=== PATIENT | female | born 1975 | race Hispanic/Latino ===

== ENCOUNTER → 2018-01-27 16:05 | Outpatient (CLI) | payer OTHER, MEDICAID, SELFPAY ==
--- NOTE | 2018-01-27 | DI.MRI.S_ITS ---
PROCEDURE: MR CERVICAL SPINE WO/W CON INDICATIONS: LUMBAR SPINE TUMOR TECHNIQUE: Noncontrast sagittal T1 spin echo and T2 fast spin echo, sagittal STIR, foraminal oblique sagittal T2 fast spin echo, axial gradient echo or T2 fast spin echo through the cervical spine. After the administration of contrast, axial and sagittal T1 spin echo with fat saturation through the cervical spine. COMPARISON: None. FINDINGS: Image quality: Excellent. Alignment and curvature: There is normal bony alignment. Marrow: Marrow is normal in overall signal, without suspicious enhancement. Spinal cord: Visualized spinal cord has normal size and signal. No cerebellar tonsillar herniation. No intramedullary mass or abnormal intramedullary enhancement. Paraspinous soft tissues: No paravertebral masses or suspicious enhancement. Enlarged thyroid gland with heterogeneous signal and multiple nodules. Amorphous soft tissue may present in the upper mediastinum, which is partially visualized. C2-3: Normal appearance. C3-4: Preserved disc height and disc desiccation. There is broad posterior disc bulge. Left uncovertebral hypertrophy. Mild bilateral facet arthropathy. The central canal is mildly narrowed. Mild to moderate left foraminal stenosis. Patent right neural foramen. C4-5: Preserved disc height and disc desiccation. There is broad posterior disc bulge and uncovertebral hypertrophy. Moderate right and mild left facet arthropathy. The central canal is patent. Mild bilateral foraminal stenosis. C5-6: Preserved disc height and disc desiccation. There is broad posterior disc bulge and uncovertebral hypertrophy. Mild bilateral facet arthropathy. The central canal is mildly narrowed. Mild bilateral foraminal stenosis. C6-7: Normal appearance. C7-T1: Normal appearance. IMPRESSION: 1. No intramedullary lesion or abnormal enhancement involving the cervical cord or visualized upper thoracic cord. 2. Degenerative changes noted in cervical spine. 3. Mild central canal stenosis at C3-C4 and C5-C6. 4. Mild foramina stenosis at several levels as described. 5. Thyromegaly and thyroid nodules. Recommend thyroid ultrasound for followup. 6. Suggestion of amorphous soft tissue in the upper mediastinum which is partially visualized. Differential diagnoses include lymphadenopathy, substernal goiter versus artifact. If clinically indicated, CT with contrast may be obtained for followup evaluation. Dictated by: Cande Alexander M.D. on 01/28/2018 at 9:42 Approved by: Cande Alexander M.D. on 01/28/2018 at 9:53
== END ==
PROVIDERS: PCP Physician Assistant Medical; Visit Provider Neurological Surgery
DX: D49.2 Neoplasm of unspecified behavior of bone, soft tissue, and skin (principal); M50.21 Other cervical disc displacement, high cervical region; M47.812 Spondylosis without myelopathy or radiculopathy, cervical region; M48.02 Spinal stenosis, cervical region; E04.2 Nontoxic multinodular goiter
CPT/HCPCS: 72156; A9579

== ENCOUNTER 2020-01-25 18:36 | Emergency (ER) | payer MEDICARE, OTHER, MEDICAID, SELFPAY ==
[2020-01-25 19:11] VITALS: BP 153/74; PULSE 96; RESP 18; TEMP 36.8; O2SAT 98; BMI 51.5
--- NOTE | 2020-01-25 19:18 | DI.RAD.S_ITS ---
PROCEDURE: XR FOOT LT MIN 3V INDICATIONS: foot pain TECHNIQUE: 3 nonweightbearing views of the foot were acquired. COMPARISON: None. FINDINGS: Bones: No acute fractures or dislocations. No suspicious bony lesions. Mild degenerative changes are seen in the midfoot and at the navicular cuneiform articulations. A bipartite medial hallux sesamoid is noted. There is a small plantar calcaneal spur. A tiny os navicular is present. Soft tissues: No tibiotalar joint effusion. Achilles tendon appears normal. Mild soft tissue edema is seen at the dorsum of the foot. IMPRESSION: No acute osseous abnormality. Mild degenerative changes in the midfoot. Dictated by: Butch Kumari M.D. on 01/25/2020 at 19:32 Approved by: Butch Kumari M.D. on 01/25/2020 at 19:34
[2020-01-25] MEDS: IBUPROFEN 400 MG TABLET PO (20:26)
[2020-01-25 20:30] VITALS: BP 133/62; PULSE 93; RESP 16; O2SAT 99
--- NOTE | 2020-01-25 21:58 | ED.LOWEXIN ---
HPI - Extremity Injury (Lower) <CINDY Ohara - Last Filed: 01/25/20 22:33> General Chief Complaint: Extremity Injury, Lower Stated Complaint: LEFT FOOT HURTS TO PUT PRESSURE ON IT Time Seen by Provider: 01/25/20 19:42 Source: patient Mode of arrival: Ambulatory Limitations: no limitations History of Present Illness HPI Narrative: This is a 44 year female, nonsmoker, with past medical history significant for left knee meniscus injury, tumor removal from spine and uses special crutches for ambulation presents to ED with chief complain of left dorsal foot pain. Reports when she was in the shower and heard cracking noise and felt pain. Patient denies injuring affected foot by inverting or averting the foot or other mechanism. Patient reports pain increases with walking. Patient reports her legs swell is easily and had US test done for DVT in the past but it was negative. Patient reports slight numbness to toes but is able to move toes on affected foot. She had taken migraine Excedrin medications earlier for pain. Related Data Home Medications Medication Instructions Recorded Confirmed albuterol sulfate INHALATION 01/25/20 Allergies Allergy/AdvReac Type Severity Reaction Status Date / Time No Known Allergies Allergy Uncoded 07/10/17 12:47 Review of Systems <CINDY Ohara - Last Filed: 01/25/20 22:33> Review of Systems Narrative: General: Denies fever, chills, fatigue, malaise, sweats. Respiratory: Denies dyspnea, cough, wheezing, hemoptysis, sputum. Cardiovascular: Denies chest pain, palpitations, orthopnea, edema. Musculoskeletal: See HPI Skin: Denies rash, skin lesions, or other. Patient History <CINDY Ohara - Last Filed: 01/25/20 22:33> Surgical History History of spinal surgery (Acute) Social History Smoking Status: Never smoker Smoking Status: Never smoker alcohol intake frequency: 0-2 drinks per day Substance Use Type: marijuana Exam <CINDY Ohara - Last Filed: 01/25/20 22:33> Narrative Exam Narrative: General appearance: well developed, obese female, in no acute distress. Head: normocephalic, atraumatic, no scalp lesions, non-tender. ENT: Hearing grossly intact. Airway patent. Neck/Thyroid: neck supple, full range of motion, no visible masses or meningeal signs. No JVD, non-tender without lymphadenopathy. Skin: no suspicious rashes, lesions over visible areas. Warm and dry and appropriate color for ethnicity. Heart: no clubbing, no cyanosis, no edema. Lungs: Breathing even and unlabored. No stridor. No accessory muscles used. Able to speak in full sentences. Chest: normal shape and expansion. Abdomen: non-obese, non-distended. Neurologic: alert and oriented. Cognitive exam, AD COMPOSITOR and PNS grossly intact on informal exam. Psych: good eye contact, normal affect. Initial Vital Signs Initial Vital Signs: Vital Signs Temperature 98.2 F 01/25/20 19:11 Pulse Rate 96 H 01/25/20 19:11 Respiratory Rate 18 01/25/20 19:11 Blood Pressure 153/74 H 01/25/20 19:11 Pulse Oximetry 98 01/25/20 19:11 Extrem Right lower extremity: normal to inspection and edema Left lower extremity: normal to inspection, edema, ankle Details: normal to inspection; no tenderness and no swelling and foot Details: normal capillary refill, tenderness Location: of the dorsal foot, toes with normal ROM, vascular exam Details: dorsalis pedis pulse present and normal capillary refill, tendon exam Details: active flexion normal and active extension normal and motor-sensory exam Details: light-touch normal; no unusual warmth, no lacerations, no ecchymosis and no puncture wound <Lance Galdamez MD - Last Filed: 01/26/20 03:13> Initial Vital Signs Initial Vital Signs: Vital Signs Temperature 98.2 F 01/25/20 19:11 Pulse Rate 96 H 01/25/20 19:11 Respiratory Rate 18 01/25/20 19:11 Blood Pressure 153/74 H 01/25/20 19:11 Pulse Oximetry 98 01/25/20 19:11 Procedures <CINDY Ohara - Last Filed: 01/25/20 22:33> Orthopedic Splinting/Casting Injury #1: Side: left Lower Extremity Injury Location: foot Lower Extremity Immobilizer: Satish wrap Post splinting neuro exam: intact Post splinting vascular exam: intact Placed by: Nursing Scores <CINDY Ohara - Last Filed: 01/25/20 22:33> GCS [place] coma scale eye opening: Spontaneous Juan Carlos coma scale verbal response: Orientated [place] coma scale motor response: Obey commands B[place]ft coma scale total score: 15 Course <CINDY Ohara - Last Filed: 01/25/20 22:33> Orders Ordered: ED Orders 01/25/20 19:18 XR foot LT min 3V Stat Discontinued Medications Ibuprofen (Advil) 400 mg PO NOW ONE Stop: 01/25/20 20:20 Last Admin: 01/25/20 20:26 Dose: 400 mg Documented by: LARRY Vital Signs Vital signs: Vital Signs - 8 hr 01/25/20 20:30 Pulse Rate 93 H Respiratory Rate 16 Blood Pressure 133/62 Pulse Oximetry 99 <Lance Galdamez MD - Last Filed: 01/26/20 03:13> Orders Ordered: ED Orders 01/25/20 19:18 XR foot LT min 3V Stat Discontinued Medications Ibuprofen (Advil) 400 mg PO NOW ONE Stop: 01/25/20 20:20 Last Admin: 01/25/20 20:26 Dose: 400 mg Documented by: LARRY Vital Signs Vital signs: Vital Signs - 8 hr 01/25/20 20:30 Pulse Rate 93 H Respiratory Rate 16 Blood Pressure 133/62 Pulse Oximetry 99 MDM - Extremity Injury (Lower) <CINDY Ohara - Last Filed: 01/25/20 22:33> Differential Diagnosis Differential diagnosis: Likely other (Foot strain/sprain, foot fracture, arthritis) Medical Records Attestation: I reviewed the patient's medical records. Lab Data Attestation: I reviewed the patient's lab results. Imaging Data XR-Foot LT: Radiologist's Impression: [address] [address] XRay Report Signed Patient: Fransisca Whitaker R#: [id number] : 1975Acct:[id number] Age/Sex: 44 / FDate of Service: 01/25/20 Loc: ED Accession Number: [id number] Procedure: XR foot LT min 3V Ordering Provider: Lance Galdamez MD PROCEDURE: XR FOOT LT MIN 3V INDICATIONS: foot pain TECHNIQUE: 3 nonweightbearing views of the foot were acquired. COMPARISON: None. FINDINGS: Bones: No acute fractures or dislocations. No suspicious bony lesions. Mild degenerative changes are seen in the midfoot and at the navicular cuneiform articulations. A bipartite medial hallux sesamoid is noted. There is a small plantar calcaneal spur. A tiny os navicular is present. Soft tissues: No tibiotalar joint effusion. Achilles tendon appears normal. Mild soft tissue edema is seen at the dorsum of the foot. IMPRESSION: No acute osseous abnormality. Mild degenerative changes in the midfoot. Dictated by: Butch Kumari M.D. on 01/25/2020 at 19:32 Approved by: Butch Kumari M.D. on 01/25/2020 at 19:34 MDM Narrative Medical decision making narrative: This is a 44 year female presents to ED with nontraumatic left dorsal foot pain. Patient has intact sensation and distal pulses with brisk cap refill. Patient is able to move toes without difficulty. Patient has bilateral generalize leg swelling. X-ray test does not show acute fractures or dislocations. There is mild degenerative changes seen in the midfoot at the navicular cuneiform articulation. Applied Satish wrap on affected foot for support and advised to use her own special crutches. Patient was medicated with Motrin in ED. advised to follow-up primary care physician and [facility] phone number. Return precautions were discussed with patient and patient verbalized understanding in agreement with treatment plan. Discharge Plan Departure Patient Disposition: Home Clinical Impression: Foot sprain Qualifiers: Encounter type: initial encounter Laterality: left Qualified Code(s): S93.602A - Unspecified sprain of left foot, initial encounter Discharge Date/Time: 01/25/20 20:30 Instructions: DI for Knee Sprain Activity Restrictions/Additional Instructions: You have been diagnosed with [left foot pain likely from strain/sprain. X-ray test shows no acute findings such as fractures or dislocations. You can use Satish wrap to give support on affected foot. please elevate affected leg during rest. You can use cool pack on affected foot to help with pain and swelling. You can use your crutches for ambulation and weight-bearing.]. What to do: *Take your medications as directed. You can take [id number] Tylenol and or Motrin as needed for discomfort. You were provided with Motrin while in ED. *Follow up with your primary care provider in 2-3 days, call for an appointment. Let them know you were seen in the ED and that we asked you to be seen in follow up. *Return to ED if you have any new, worsening, or concerning symptoms, such as [worsening pain, weakness to affected foot, redness/warmth/swelling on affected foot or leg, chest pain, breathing difficulty, unable to tolerate fluids or any acute concerns]. Prescriptions: No Action albuterol sulfate 90 mcg/actuation HFA aerosol inhaler INHALATION RF: 0 Referrals: [facility] [Outside] Raymond Alvarez [Primary Care Provider] -
== END 2020-01-25 20:30 | disposition home or self-care (01) ==
PROVIDERS: Emergency Provider Nurse Practitioner Family; PCP Physician Assistant Medical
DX: S93.602A Unspecified sprain of left foot, initial encounter (principal)
CPT/HCPCS: 73630; 99283; 99284

== ENCOUNTER 2023-09-25 11:22 | Observation (INO) | payer OTHER, MEDICAID, SELFPAY ==
[2023-09-25] VITALS (13 sets, daily range): BP systolic 105–139; BP diastolic 49–91; PULSE 91–111; RESP 16–22; TEMP 36.2–36.6; O2SAT 92–100; BMI 51.5
[2023-09-25 11:48] LABS: Add Manual Diff / Slide Review NO; Basophils Absolute Auto 100 /uL (0-100); Basophils Percent Auto 0.5 % (0-2); Eosinophils Absolute Auto 100 /uL (0-450); Eosinophils Percent Auto 1.1 % (2-4); Hematocrit 40.2 % (36-46); Hemoglobin 13.3 g/dL (12.0-16.0); Lymphocytes Absolute Auto 2600 /uL (1100-4500); Lymphocytes Percent Auto 19.9 % (25-40); Mean Corpuscular HGB Conc 33.1 % (30-36); Mean Corpuscular Hemoglobin 28.4 PG (26-34); Mean Corpuscular Volume 85.8 fL (80-100); Monocytes Absolute Auto 600 /uL (0-900); Neutrophils Absolute Auto 9500 /uL (1500-7000); Neutrophils Percent Auto 73.5 % (50-75); Platelet Count 230 X10^3/uL (150-400); Red Blood Cell Count 4.68 X10^6/uL (4.0-5.2); Red Cell Distribution Width 13.8 % (11.6-14.8); White Blood Cell Count 12.9 X10^3/uL (4.5-11.0)
[2023-09-25 11:58] LABS: Alanine Aminotransferase 17 IU/L (<35); Albumin 3.8 g/dL (3.5-5.0); Alkaline Phosphatase 137 U/L (38-126); Aspartate Aminotransferase 24 IU/L (14-36); BUN Creatinine Ratio 17.9 (6-22); Bilirubin Total 0.5 mg/dL (0.2-1.3); Blood Urea Nitrogen 10 mg/dL (7-17); Calcium 8.8 mg/dL (8.4-10.2); Carbon Dioxide 28 mmol/L (22-32); Chloride 100 mmol/L (98-107); Estimated Glomerular Filt Rate > 60 mL/min (>60); Globulin 3.7 g/dL (1.7-4.1); Glucose 441 mg/dL (70-100); HEMOLYSIS < 15 (0-50); Lipase 96 U/L (23-300); Potassium 3.5 mmol/L (3.4-5.1); Sodium 135 mmol/L (137-145); Total Protein 7.5 g/dL (6.3-8.2)
[2023-09-25] MEDS: SODIUM CHLORIDE 0.9% 1,000 ML 1000 ML IV (12:01)
[2023-09-25 12:02] LABS: Bacteria Urine Moderate (10-30); Culture Indicated Urine Specimen Cultured; RBC Urine 5-10/HPF (0-5/HPF); Squamous Epithelial Cell Urine 5-10 /HPF (0-5/HPF); Urine Volume 10mL (spun); WBC Urine 10-30/HPF (0-5/HPF)
--- NOTE | 2023-09-25 12:05 | ED.GENADULT ---
HPI - General Adult General Chief complaint: Abdominal Pain Stated complaint: abd pain Time Seen by Provider: 09/25/23 11:48 Source: patient Mode of arrival: Ambulatory History of Present Illness HPI narrative: Patient is a 47-year-old female here for evaluation of right lower quadrant abdominal pain. Patient states her symptoms started yesterday. They are actually somewhat better today than what they were yesterday. She did have an episode of loose stool this morning. That did not change her belly pain. No vomiting. No fevers. No urinary symptoms. She states that the pain is present when you touch the area when she moves around. Has not tried anything for the symptoms prior to arrival. Related Data Home Medications Medication Instructions Recorded Confirmed albuterol sulfate 90 mcg/actuation inhalation 01/25/20 aerosol inhaler Allergies Allergy/AdvReac Type Severity Reaction Status Date / Time No Known Drug Allergies Allergy Verified 09/25/23 11:26 Review of Systems Review of Systems Narrative: See HPI Patient History Surgical History History of spinal surgery Social History Smoking Status: Current every day smoker Smoking Status: Current every day smoker alcohol intake frequency: holidays/special occasions only Substance Use Type: marijuana Exam Initial Vital Signs Initial Vital Signs: Vital Signs Temperature 97.9 F 09/25/23 11:26 Pulse Rate 106 H 09/25/23 11:26 Respiratory Rate 16 09/25/23 11:26 Blood Pressure 139/91 H 09/25/23 11:26 Pulse Oximetry 96 09/25/23 11:26 Oxygen Delivery Method Room Air 09/25/23 11:26 Const General: cooperative, comfortable and No ill appearing [facility] Head: normal to inspection and normocephalic Resp Effort & Inspection: normal respiratory effort Cardio Rate: regular rate GI Inspection: normal to inspection and non-distended Palpation: soft, No firm, No guarding and tender (Right lower quadrant) Back/Spine/Pelvis Back: No CVA tenderness Neuro General: patient alert and patient awake Course Orders Ordered: ED Orders 09/25/23 11:30 Urine Culture Stat Urine Microscopic Stat 09/25/23 11:35 Complete Blood Count AUTO DIFF Stat Comprehensive Metabolic Panel Stat Lipase Stat 09/25/23 12:05 CT abdomen pelvis w con Stat 09/25/23 13:40 Consult to General Surgery Stat Sodium Chloride (Normal Saline 0.9%) 1,000 mls @ 125 mls/hr IV CONT MATT Piperacillin Sod/Tazobactam (Sod 3.375 gm/ Sodium Chloride) 100 mls @ 25 mls/hr IV Q8H MATT Ondansetron HCl (Ondansetron 4 Mg/2 Ml Inj) 4 mg IV NOW PRN PRN Reason: Nausea And Vomiting Discontinued Medications Sodium Chloride (Normal Saline 0.9%) 1,000 mls @ 1,000 mls/hr IV BOLUS ONE Stop: 09/25/23 12:48 Last Infusion: 09/25/23 13:22 Dose: Infused Documented By: Admin: 09/25/23 12:01 Dose: 1,000 mls/hr Documented By: LAUREN Lorazepam (Lorazepam 2 Mg/Ml Inj) 1 mg IV NOW ONE Stop: 09/25/23 13:33 Morphine Sulfate (Morphine 4 Mg/Ml Inj) 4 mg IV NOW ONE Stop: 09/25/23 13:15 Last Admin: 09/25/23 13:22 Dose: 4 mg Documented By: GRACIELA Vital Signs Vital signs: Vital Signs - 8 hr 09/25/23 11:26 09/25/23 11:58 09/25/23 11:59 Temperature 97.9 F Pulse Rate 106 H Respiratory Rate 16 Blood Pressure 139/91 H 124/58 L Pulse Oximetry 96 96 Oxygen Delivery Method Room Air 09/25/23 11:59 09/25/23 12:00 09/25/23 12:00 Temperature Pulse Rate 103 H 107 H Respiratory Rate Blood Pressure 124/59 L Pulse Oximetry 97 97 Oxygen Delivery Method Medical Decision Making Lab Data Lab results reviewed: Yes I reviewed the patient's lab results. 09/25/23 11:35 09/25/23 11:35 Labs: Lab Results 09/25/23 09/25/23 Range/Units 11:30 11:35 WBC 12.9 H (4.5-11.0) X10^3/uL RBC 4.68 (4.0-5.2) X10^6/uL Hgb 13.3 (12.0-16.0) g/dL Hct 40.2 (36-46) % MCV 85.8 (80-100) fL MCH 28.4 (26-34) PG MCHC 33.1 (30-36) % RDW 13.8 (11.6-14.8) % Plt Count 230 (150-400) X10^3/uL Neut % (Auto) 73.5 (50-75) % Lymph % (Auto) 19.9 L (25-40) % [place] % (Auto) 5.0 (3-14) % Eos % (Auto) 1.1 L (2-4) % Baso % (Auto) 0.5 (0-2) % Neut # (Auto) 9500 H (1333-8605) /uL Lymph # (Auto) 2600 (6509-5461) /uL [place] # (Auto) 600 (0-900) /uL Eos # (Auto) 100 (0-450) /uL Baso # (Auto) 100 (0-100) /uL Sodium 135 L (137-145) mmol/L Potassium 3.5 (3.4-5.1) mmol/L Chloride 100 (98-107) mmol/L Carbon Dioxide 28 (22-32) mmol/L BUN 10 (7-17) mg/dL Creatinine 0.56 (0.52-1.04) mg/dL Estimated GFR > 60 (>60) mL/min BUN/Creatinine Ratio 17.9 (6-22) Glucose 441 H (70-100) mg/dL Calcium 8.8 (8.4-10.2) mg/dL Total Bilirubin 0.5 (0.2-1.3) mg/dL AST 24 (14-36) IU/L ALT 17 (<35) IU/L Alkaline Phosphatase 137 H (38-126) U/L Total Protein 7.5 (6.3-8.2) g/dL Albumin 3.8 (3.5-5.0) g/dL Globulin 3.7 (1.7-4.1) g/dL Albumin/Globulin Ratio 1.0 (1.0-2.8) Lipase 96 (23-300) U/L Urine RBC 5-10/hpf H (0-5/HPF) Urine WBC 10-30/hpf H (0-5/HPF) Ur Squamous Epith Cells 5-10 /hpf H (0-5/HPF) Urine Bacteria Moderate (10-30) H (None) Ur Culture Indicated? Specimen cultured Vol Urine Centrifuged 10ml (spun) Point of Care Testing Test Results Negative Urine Dip Bedside Urine Glucose 1000 mg/dl Bedside Urine Bilirubin - Negative Bedside Urine Ketone - Negative Urine Specific [place] 1.010 Bedside Urine Occult Blood ++ Bedside Urine pH 6.0 Bedside Urine Protein - Negative Bedside Urine Urobilinogen - Negative Bedside Urine Nitrite - Negative Bedside Urine Leukocytes - Negative Esterase Point of care testing: Point of Care Testing Test Results Negative Urine Dip Bedside Urine Glucose 1000 mg/dl Bedside Urine Bilirubin - Negative Bedside Urine Ketone - Negative Urine Specific [place] 1.010 Bedside Urine Occult Blood ++ Bedside Urine pH 6.0 Bedside Urine Protein - Negative Bedside Urine Urobilinogen - Negative Bedside Urine Nitrite - Negative Bedside Urine Leukocytes - Negative Esterase Imaging Data CT scan - abdomen/pelvis: Radiologist's Impression: PROCEDURE: CT ABDOMEN PELVIS W CON INDICATIONS: RLQ ABd pain TECHNIQUE: After the administration of intravenous contrast, axial sections acquired from the lung bases to the pubic symphysis. Coronal and sagittal reformats were performed. For radiation dose reduction, the following was used: automated exposure control, adjustment of mA and/or kV according to patient size. COMPARISON: None. FINDINGS: Image quality: Diagnostic. Lower Chest: No significant findings. ABDOMEN: Liver: No solid mass. Mild hepatomegaly. Mild diffuse hepatic steatosis. Gallbladder: No radiopaque gallstones or wall thickening. Biliary ducts: No biliary dilation. Pancreas: No ductal dilation. Spleen: Size is within normal limits. Adrenal Glands: No adrenal nodules. Kidneys and Ureters: No hydronephrosis. No solid mass. No complex renal cystic lesion which requires follow up. Stomach and Bowel: Normal colonic caliber, without significant wall thickening. Acute appendicitis with inflammatory change in the adjacent fat. Cannot exclude early rupture. This is not definite. There is an associated proximal appendiceal calcified fecalith. Peritoneum: No abnormal intraperitoneal fluid. No free air. Ventral Wall: No significant ventral hernia. Abdominal Nodes: No retroperitoneal or mesenteric adenopathy by size criteria. Vessels: Aorta and inferior vena cava are normal in size. PELVIS: Pelvic Organs: Unremarkable. Bladder: No bladder wall thickening, accounting for underdistention. Pelvic Nodes: No enlarged lymph nodes. Miscellaneous: No inguinal hernias are seen. Bones: No aggressive osseous abnormality. IMPRESSION: 1. Acute appendicitis with associated inflammatory change in the adjacent fat. Cannot exclude early rupture. 2. Mild diffuse hepatic steatosis and mild hepatomegaly. Comment: Appendiceal findings were discussed with Dr. Crowe on 09/25/2023 at 1328 hours MDM Narrative Medical decision making narrative: Patient with right lower quadrant abdominal pain. Mild leukocytosis. CT scan shows appendicitis. Discuss the case with Dr. Seals on-call for General surgery. Patient was made NPO. Fluids started. Antibiotics ordered. Patient will be admitted for surgical treatment. Discuss the findings the CT scan with the patient. She expressed understanding and agreement. Discharge Plan Departure Patient Disposition: Admitted as Observation Clinical Impression: Acute appendicitis Admit Date/Time: 09/25/23 13:41 Admit Provider: Ryan Seals
[2023-09-25] MEDS: MORPHINE 4 MG/ML INJ IV (13:22)
[2023-09-25] MEDS: LORazepam 2 MG/ML INJ 1 MG IV (13:42)
[2023-09-25] MEDS: SODIUM CHLORIDE 0.9% 1,000 ML 125 ML IV ×2 (13:43→16:02)
[2023-09-25] MEDS: PIPERACILLIN/TAZO 3.375 GM in SODIUM CHLORIDE 0.9% 100 ML IV ×2 (13:55→21:26)
[2023-09-25 15:52] LABS: Hemoglobin A1C% w Est Avg Glu 11.6 % (4.0-6.0)
--- NOTE | 2023-09-25 17:08 | PM.CALLCOV.1 ---
Call Coverage Note Note Date of Patient Contact: 09/25/23 Narrative of Care Provided: Medicine asked to consult for new diagnosis of DM, patient admitted for acute appendicitis. Plan for appendectomy tomorrow. There will be delay in consultation due to other acute care needs on the floor. For now have ordered for 30 U of lantus this evening and q6 hr fingersticks with medium sliding scale coverage. Formal consult likely tomorrow morning.
--- NOTE | 2023-09-25 17:27 | P.HP_ITS ---
History of Present Illness History of Present Illness Date Patient Seen: 09/25/23 Time Patient Seen: 17:27 Chief complaint: abd pain Narrative: Fransisca Whitaker is a 47-year-old woman who presented to the emergency department with 1 day of right lower quadrant abdominal pain. A CT scan did demonstrate acute appendicitis. She was noted to have a blood sugar of 440. She has never been diagnosed with diabetes but she was told she had gestational diabetes when she was . Her most recent use of methamphetamines was yesterday. [facility] Surgical History (Updated 09/25/23 @ 14:43 by Elli Hand RN) Hx of section (~2008) Hx of tubal ligation (~2008) History of spinal surgery Social History household members: family Smoking Status: Current every day smoker alcohol intake: current Meds Home Medications and Allergies Home Medications Medication Instructions Recorded Confirmed Type albuterol sulfate 90 mcg/actuation 2 puff inhalation PRN PRN sob 01/25/20 09/25/23 History aerosol inhaler acetaminophen 325 mg tablet 650 mg PO Q6H PRN Pain, Moderate 09/25/23 09/25/23 History (Tylenol) ibuprofen 200 mg tablet 400 mg PO Q6H PRN Pain, Moderate 09/25/23 09/25/23 History medroxyprogesterone 10 mg tablet 10 mg PO DAILY 09/25/23 09/25/23 History Allergies Allergy/AdvReac Type Severity Reaction Status Date / Time No Known Drug Allergies Allergy Verified 09/25/23 14:39 Exam Vital Signs (past 8 hours): - 09/25/23 11:26 09/25/23 11:58 09/25/23 11:59 Temperature 97.9 F Pulse Rate 106 H Respiratory Rate 16 Blood Pressure 139/91 H 124/58 L Pulse Oximetry 96 96 Oxygen Delivery Method Room Air Oxygen Flow Rate 09/25/23 11:59 09/25/23 12:00 09/25/23 12:00 Temperature Pulse Rate 103 H 107 H Respiratory Rate Blood Pressure 124/59 L Pulse Oximetry 97 97 Oxygen Delivery Method Oxygen Flow Rate 09/25/23 12:30 09/25/23 12:30 09/25/23 13:08 Temperature Pulse Rate 99 H Respiratory Rate Blood Pressure 132/63 Pulse Oximetry 95 100 Oxygen Delivery Method Oxygen Flow Rate 09/25/23 13:09 09/25/23 13:09 09/25/23 13:30 Temperature Pulse Rate 111 H Respiratory Rate Blood Pressure 128/73 119/63 Pulse Oximetry 98 Oxygen Delivery Method Oxygen Flow Rate 09/25/23 13:30 09/25/23 14:00 09/25/23 14:00 Temperature Pulse Rate 102 H 94 H Respiratory Rate Blood Pressure 111/56 L Pulse Oximetry 97 92 Oxygen Delivery Method Oxygen Flow Rate 09/25/23 15:48 09/25/23 15:48 09/25/23 16:00 Temperature 97.1 F L 97.1 F L Pulse Rate 91 H 91 H Respiratory Rate 16 22 Blood Pressure 105/49 L 105/49 L Pulse Oximetry 95 95 95 Oxygen Delivery Method Room Air Oxygen Flow Rate 0 0 0 Oxygen Delivery Method Room Air Oxygen Flow Rate 0 Narrative Exam Narrative: Obese Abdomen is tender to palpation in the right lower quadrant Objective Labs 09/25/23 11:35 09/25/23 11:35 Labs: Laboratory Results - last 24 hr 09/25/23 09/25/23 11:30 11:35 WBC 12.9 H RBC 4.68 Hgb 13.3 Hct 40.2 MCV 85.8 MCH 28.4 MCHC 33.1 RDW 13.8 Plt Count 230 Neut % (Auto) 73.5 Lymph % (Auto) 19.9 L [place] % (Auto) 5.0 Eos % (Auto) 1.1 L Baso % (Auto) 0.5 Neut # (Auto) 9500 H Lymph # (Auto) 2600 [place] # (Auto) 600 Eos # (Auto) 100 Baso # (Auto) 100 Sodium 135 L Potassium 3.5 Chloride 100 Carbon Dioxide 28 BUN 10 Creatinine 0.56 Estimated GFR > 60 BUN/Creatinine Ratio 17.9 Glucose 441 H Hemoglobin A1c 11.6 H Calcium 8.8 Total Bilirubin 0.5 AST 24 ALT 17 Alkaline Phosphatase 137 H Total Protein 7.5 Albumin 3.8 Globulin 3.7 Albumin/Globulin Ratio 1.0 Lipase 96 Urine RBC 5-10/hpf H Urine WBC 10-30/hpf H Ur Squamous Epith Cells 5-10 /hpf H Urine Bacteria Moderate (10-30) H Ur Culture Indicated? Specimen cultured Vol Urine Centrifuged 10ml (spun) Assessment & Plan Assessment and plan (1) Acute appendicitis: Qualifiers: Acute appendicitis type: with localized peritonitis Appendicitis gangrene presence: without gangrene Appendicitis perforation presence: without perforation Appendicitis abscess presence: without abscess Qualified Code(s): K35.30 - Acute appendicitis with localized peritonitis, without perforation or gangrene Status: Acute Plan She is on Zosyn. We will get her blood sugar down with insulin and plan for laparoscopic appendectomy tomorrow afternoon.
[2023-09-25] MEDS: INSULIN LISPRO 100 UNIT/ML 3ML VIAL SUBCUT (18:17)
[2023-09-25 20:51] LABS: Ur Creatinine Normal (Normal); Ur Specific Gravity Normal (Normal); Urine Cocaine Negative (Negative); Urine THC Negative (Negative); Urine pH Normal (Normal)
[2023-09-25 20:52] LABS: Urine Amphetamines Positive (Negative); Urine Barbiturates Negative (Negative); Urine MDMA Negative (Negative); Urine Methamphetamines Positive (Negative); Urine Opiates Positive (Negative); Urine Phencyclidine Negative (Negative)
[2023-09-25 20:53] LABS: Urine Benzodiazepines Positive (Negative); Urine Methadone Negative (Negative); Urine Oxycodone Negative (Negative); Urine Tricyclic Antidepressant Negative (Negative)
[2023-09-25] MEDS: ACETAMINOPHEN 325 MG TABLET 650 MG PO (21:23)
[2023-09-25] MEDS: IBUPROFEN 600 MG TABLET PO (21:24)
[2023-09-25] MEDS: OXYCODONE IR 5 MG TABLET PO (21:25)
[2023-09-25] MEDS: INSULIN GLARGINE 100 UNIT/ML 3ML PEN 20 UNIT SUBCUT (21:42)
[2023-09-26] VITALS (9 sets, daily range): BP systolic 100–135; BP diastolic 56–76; PULSE 78–102; RESP 16–18; TEMP 36.1–36.8; O2SAT 93–97; BMI 51.5
[2023-09-26] MEDS: INSULIN LISPRO 100 UNIT/ML 3ML VIAL SUBCUT ×4 (00:06→17:31)
[2023-09-26] MEDS: SODIUM CHLORIDE 0.9% 1,000 ML 125 ML IV ×2 (00:09→09:24)
--- NOTE | 2023-09-26 05:18 | PM.HP.1 ---
History of Present Illness History of Present Illness Date Patient Seen: 09/25/23 Time Patient Seen: 22:10 Chief complaint: Medical consult requested by surgery Narrative: Medical consult requested by surgery Reason for consult management of diabetes Patient was seen within 24 hours of consult request 49 years old female with a past medical history of diabetes, /tubal ligation and other medical issues presented to the emergency room for abdominal pain that started the day prior to presentation. Pain is mainly in the right lower quadrant. Denies any nausea or fever. No bladder issues. Denies any palpitation dizziness or loss of consciousness. Does admit to use recreational agent/marijuana/methamphetamine and the last dose was the day prior to presentation. Follow-up labs showed a white count of 12.9 with a hemoglobin of 13.3. Sodium was 135 with a potassium of 3.5, BUN of 10 with a creatinine of 0.56. CT abdomen the pelvis was concerning for acute appendicitis with inflammatory changes in the adjacent fat. Patient was given a dose of IV Zosyn and admitted under surgery. Medicine service have been consulted to manage the diabetes REPLACED BY [facility] Surgical History (Updated 09/25/23 @ 14:43 by Elli Hand RN) Hx of section (~2008) Hx of tubal ligation (~2008) History of spinal surgery Social History household members: family Smoking Status: Current every day smoker alcohol intake: current Meds Home Medications and Allergies Home Medications Medication Instructions Recorded Confirmed Type albuterol sulfate 90 mcg/actuation 2 puff inhalation PRN PRN sob 01/25/20 09/25/23 History aerosol inhaler acetaminophen 325 mg tablet 650 mg PO Q6H PRN Pain, Moderate 09/25/23 09/25/23 History (Tylenol) ibuprofen 200 mg tablet 400 mg PO Q6H PRN Pain, Moderate 09/25/23 09/25/23 History medroxyprogesterone 10 mg tablet 10 mg PO DAILY 09/25/23 09/25/23 History Allergies Allergy/AdvReac Type Severity Reaction Status Date / Time No Known Drug Allergies Allergy Verified 09/25/23 14:39 Review of Systems Review of Systems Narrative: A 12 point review of system is negative unless otherwise stated in the history of present illness Exam Vital Signs (past 8 hours): - 09/25/23 21:45 09/26/23 00:00 09/26/23 01:00 Temperature 97.6 F Pulse Rate 102 H Respiratory Rate 16 Blood Pressure 123/76 Pulse Oximetry 97 96 96 Oxygen Delivery Method Room Air Room Air Oxygen Flow Rate 0 0 0 09/26/23 04:00 Temperature 97.0 F L Pulse Rate 87 Respiratory Rate 16 Blood Pressure 100/56 L Pulse Oximetry 96 Oxygen Delivery Method Oxygen Flow Rate 0 Oxygen Delivery Method Room Air Oxygen Flow Rate 0 Narrative Exam Narrative: Patient is awake and does not appear to be in acute distress Flat affect Tenderness noted in the right lower quadrant. Abdomen is soft Objective Labs 09/25/23 11:35 09/25/23 11:35 Labs: Laboratory Results - last 24 hr 09/25/23 09/25/23 09/25/23 11:30 11:35 20:38 WBC 12.9 H RBC 4.68 Hgb 13.3 Hct 40.2 MCV 85.8 MCH 28.4 MCHC 33.1 RDW 13.8 Plt Count 230 Neut % (Auto) 73.5 Lymph % (Auto) 19.9 L [place] % (Auto) 5.0 Eos % (Auto) 1.1 L Baso % (Auto) 0.5 Neut # (Auto) 9500 H Lymph # (Auto) 2600 [place] # (Auto) 600 Eos # (Auto) 100 Baso # (Auto) 100 Sodium 135 L Potassium 3.5 Chloride 100 Carbon Dioxide 28 BUN 10 Creatinine 0.56 Estimated GFR > 60 BUN/Creatinine Ratio 17.9 Glucose 441 H Hemoglobin A1c 11.6 H Calcium 8.8 Total Bilirubin 0.5 AST 24 ALT 17 Alkaline Phosphatase 137 H Total Protein 7.5 Albumin 3.8 Globulin 3.7 Albumin/Globulin Ratio 1.0 Lipase 96 Urine RBC 5-10/hpf H Urine WBC 10-30/hpf H Ur Squamous Epith Cells 5-10 /hpf H Urine Bacteria Moderate (10-30) H Ur Culture Indicated? Specimen cultured Vol Urine Centrifuged 10ml (spun) U Opiates 300ng/mL cut Positive H Ur Oxycodone Screen Negative Urine Methadone Screen Negative Ur Barbiturates Screen Negative U Tricyclic Antidepress Negative Ur Phencyclidine Scrn Negative Ur Amphetamines Screen Positive H U Methamphetamines Scrn Positive H Ur MDMA Scrn (Ecstasy) Negative U Benzodiazepines Scrn Positive H Urine Cocaine Screen Negative U Marijuana (THC) Screen Negative Urine pH Normal Urine Specific [place] Normal Ur Creatinine Normal Assessment & Plan Assessment & Plan narrative: 49 years old female with a past medical history of diabetes, /tubal ligation and other medical issues presented to the emergency room for abdominal pain that started the day prior to presentation. Pain is mainly in the right lower quadrant. Denies any nausea or fever. No bladder issues. Denies any palpitation dizziness or loss of consciousness. Does admit to use recreational agent/marijuana/methamphetamine and the last dose was the day prior to presentation. Follow-up labs showed a white count of 12.9 with a hemoglobin of 13.3. Sodium was 135 with a potassium of 3.5, BUN of 10 with a creatinine of 0.56. CT abdomen the pelvis was concerning for acute appendicitis with inflammatory changes in the adjacent fat. Patient was given a dose of IV Zosyn and admitted under surgery. Medicine service have been consulted to manage the diabetes 1. Diabetes mellitus type 2. For now given the fluctuating diet, watch the blood sugar every 6 hours with sliding scale. Did receive a dose of Lantus insulin and will monitor the blood sugars closely. May resume home meds postsurgery when cleared 2 acute appendicitis. Continue IV Zosyn for now and follow surgery for further input. Medically optimized for surgery 3 recreational drug use. Advised to quit with ongoing follow-up in outpatient setting 4 DVT prophylaxis SCDs. Chemoprophylaxis when cleared by surgery Appreciate the consult and will follow up with you during the hospital stay
[2023-09-26] MEDS: PIPERACILLIN/TAZO 3.375 GM in SODIUM CHLORIDE 0.9% 100 ML IV ×2 (05:41→12:45)
[2023-09-26] MEDS: ACETAMINOPHEN 325 MG TABLET 650 MG PO ×2 (09:30→17:18)
[2023-09-26] MEDS: OXYCODONE IR 5 MG TABLET PO ×3 (09:30→17:18)
--- NOTE | 2023-09-26 10:13 | PC.NURSE ---
Notified provider that pt did not have labs today, WBC were elevated yesterday and potassium was 3.5 - pt NPO. Notified provider that urine specimen was cultured for possible UTI.
[2023-09-26 10:44] LABS: Mean Corpuscular HGB Conc 33.2 % (30-36); Mean Corpuscular Hemoglobin 28.6 PG (26-34); Mean Corpuscular Volume 86.1 fL (80-100); Platelet Count 175 X10^3/uL (150-400); Red Blood Cell Count 4.18 X10^6/uL (4.0-5.2); Red Cell Distribution Width 14.2 % (11.6-14.8); White Blood Cell Count 9.3 X10^3/uL (4.5-11.0)
[2023-09-26 10:57] LABS: BUN Creatinine Ratio 15.9 (6-22); Blood Urea Nitrogen 7 mg/dL (7-17); Calcium 7.6 mg/dL (8.4-10.2); Carbon Dioxide 26 mmol/L (22-32); Chloride 109 mmol/L (98-107); Estimated Glomerular Filt Rate > 60 mL/min (>60); Glucose 203 mg/dL (70-100); HEMOLYSIS < 15 (0-50); Potassium 3.4 mmol/L (3.4-5.1); Sodium 137 mmol/L (137-145)
--- NOTE | 2023-09-26 11:54 | P.PN_ITS ---
Subjective Subjective Interval history: Improived abdominal pain. No nausea or vomiting. Blood sugars improved. OR for laparoscopic appendectomy later today. She denies any history of known diabetes but has a strong family history. She also reports polyuria. Exam Vital Signs (past 8 hours): - 09/26/23 04:00 09/26/23 05:00 09/26/23 07:00 Temperature 97.0 F L Pulse Rate 87 Respiratory Rate 16 Blood Pressure 100/56 L Pulse Oximetry 96 94 Oxygen Delivery Method Room Air Room Air Oxygen Flow Rate 0 0 Oxygen Delivery Method Room Air Oxygen Flow Rate 0 Narrative Exam Narrative: NAD, alert and oriented. Fluent speech. Lungs are clear, normal rate and effort. Heart is regular, no murmur gallop or rub. Abdomen is soft, non distended. Extremities are free of edema. Objective Labs 09/26/23 10:33 09/26/23 10:33 Labs: Laboratory Results - last 24 hr 09/25/23 09/25/23 09/25/23 11:30 11:35 20:38 WBC RBC Hgb Hct MCV MCH MCHC RDW Plt Count Sodium 135 L Potassium 3.5 Chloride 100 Carbon Dioxide 28 BUN 10 Creatinine 0.56 Estimated GFR > 60 BUN/Creatinine Ratio 17.9 Glucose 441 H Hemoglobin A1c 11.6 H Calcium 8.8 Total Bilirubin 0.5 AST 24 ALT 17 Alkaline Phosphatase 137 H Total Protein 7.5 Albumin 3.8 Globulin 3.7 Albumin/Globulin Ratio 1.0 Lipase 96 Urine RBC 5-10/hpf H Urine WBC 10-30/hpf H Ur Squamous Epith Cells 5-10 /hpf H Urine Bacteria Moderate (10-30) H Ur Culture Indicated? Specimen cultured Vol Urine Centrifuged 10ml (spun) U Opiates 300ng/mL cut Positive H Ur Oxycodone Screen Negative Urine Methadone Screen Negative Ur Barbiturates Screen Negative U Tricyclic Antidepress Negative Ur Phencyclidine Scrn Negative Ur Amphetamines Screen Positive H U Methamphetamines Scrn Positive H Ur MDMA Scrn (Ecstasy) Negative U Benzodiazepines Scrn Positive H Urine Cocaine Screen Negative U Marijuana (THC) Screen Negative Urine pH Normal Urine Specific [place] Normal Ur Creatinine Normal 09/26/23 10:33 WBC 9.3 RBC 4.18 Hgb 12.0 Hct 36.0 MCV 86.1 MCH 28.6 MCHC 33.2 RDW 14.2 Plt Count 175 Sodium 137 Potassium 3.4 Chloride 109 H Carbon Dioxide 26 BUN 7 Creatinine 0.44 L Estimated GFR > 60 BUN/Creatinine Ratio 15.9 Glucose 203 H D Hemoglobin A1c Calcium 7.6 L Total Bilirubin AST ALT Alkaline Phosphatase Total Protein Albumin Globulin Albumin/Globulin Ratio Lipase Urine RBC Urine WBC Ur Squamous Epith Cells Urine Bacteria Ur Culture Indicated? Vol Urine Centrifuged U Opiates 300ng/mL cut Ur Oxycodone Screen Urine Methadone Screen Ur Barbiturates Screen U Tricyclic Antidepress Ur Phencyclidine Scrn Ur Amphetamines Screen U Methamphetamines Scrn Ur MDMA Scrn (Ecstasy) U Benzodiazepines Scrn Urine Cocaine Screen U Marijuana (THC) Screen Urine pH Urine Specific [place] Ur Creatinine PFSH Surgical History Hx of section (~2008) Hx of tubal ligation (~2008) History of spinal surgery Social History household members: family Smoking Status: Current every day smoker alcohol intake: current Assessment & Plan Assessment & Plan narrative: 1. Diabetes mellitus type 2 , uncontrolled. For now given the fluctuating diet, watch the blood sugar every 6 hours with sliding scale. Did receive a dose of Lantus insulin and will monitor the blood sugars closely. May resume home meds postsurgery when cleared. Present on admission and active. -no changes pre-op. 2. Acute appendicitis. Continue IV Zosyn for now and follow surgery for further input. Medically optimized for surgery, later today. 3. Recreational drug use. Advised to quit with ongoing follow-up in outpatient setting DVT prophylaxis SCDs. Chemoprophylaxis when cleared by surgery
[2023-09-26] MEDS: POTASSIUM CHLORIDE 20 MEQ TAB 40 MEQ PO (17:17)
--- NOTE | 2023-09-26 20:02 | PM.DS.1 ---
History of Present Illness History of Present Illness Date Patient Seen: 09/26/23 Time Patient Seen: 20:35 Chief complaint: Medical consult requested by surgery Narrative: Fransisca Whitaker is a 47-year-old woman with super morbid obesity BMI 52 with uncontrolled diabetes who presented with abdominal pain. Imaging was suggestive of appendicitis. Discharge Providers Provider Date of admission: 09/25/23 13:41 Discharge Date: 09/26/23 Primary care physician: Raymond Alvarez PA-C Consults: 09/25/23 13:40 Consult to General Surgery Stat Comment: Consulting Provider: Ryan Seals Reason for consultation: Acute appendicitis Has provider been notified: Yes 09/25/23 17:07 Consult to Dietitian, Adult Routine Comment: Reason For Exam: new DM dx Discharge provider: Cheo You MD Summary Hospital Course Discharge Diagnosis: Acute appendicitis Morbid obesity Diabetes Methamphetamine abuse Hospital Course: Patient was admitted to the hospital for management of appendicitis. 24 hours prior to her admission she used methamphetamine. Given her recent drug usage, morbid obesity, BMI 52 we managed her appendicitis non operatively. She received IV Zosyn and her leukocytosis resolved. At discharge her abdominal pain is controlled and she is afebrile. She has been given return precautions for worsening abdominal pain nausea fever Exam Vital Signs (past 8 hours): - 09/26/23 13:00 09/26/23 14:55 09/26/23 17:00 Temperature 98.2 F 97.8 F Pulse Rate 86 89 Respiratory Rate 16 16 Blood Pressure 129/74 135/76 Pulse Oximetry 93 93 97 Oxygen Delivery Method Room Air Room Air Oxygen Flow Rate 0 0 09/26/23 17:00 Temperature Pulse Rate Respiratory Rate Blood Pressure Pulse Oximetry 97 Oxygen Delivery Method Room Air Oxygen Flow Rate 0 Oxygen Delivery Method Room Air Oxygen Flow Rate 0 Narrative Exam Narrative: General adult woman alert oriented no acute distress Chest nonlabored respiration Abdomen obese. Minimal pain with palpation. No peritonitis Objective Labs 09/26/23 10:33 09/26/23 10:33 Labs: Laboratory Results - last 24 hr 09/25/23 09/26/23 20:38 10:33 WBC 9.3 RBC 4.18 Hgb 12.0 Hct 36.0 MCV 86.1 MCH 28.6 MCHC 33.2 RDW 14.2 Plt Count 175 Sodium 137 Potassium 3.4 Chloride 109 H Carbon Dioxide 26 BUN 7 Creatinine 0.44 L Estimated GFR > 60 BUN/Creatinine Ratio 15.9 Glucose 203 H D Calcium 7.6 L U Opiates 300ng/mL cut Positive H Ur Oxycodone Screen Negative Urine Methadone Screen Negative Ur Barbiturates Screen Negative U Tricyclic Antidepress Negative Ur Phencyclidine Scrn Negative Ur Amphetamines Screen Positive H U Methamphetamines Scrn Positive H Ur MDMA Scrn (Ecstasy) Negative U Benzodiazepines Scrn Positive H Urine Cocaine Screen Negative U Marijuana (THC) Screen Negative Urine pH Normal Urine Specific [place] Normal Ur Creatinine Normal PFSH Surgical History Hx of section (~2008) Hx of tubal ligation (~2008) History of spinal surgery Social History household members: family Smoking Status: Current every day smoker alcohol intake: current Discharge Plan Discharge Plan Patient Disposition: Home Provider Discharge Comment: Returned to the emergency department for worsening abdominal pain nausea vomiting fever greater than 101.5 You have been diagnosed with diabetes in addition to acute appendicitis and need to follow up with your primary care provider next week Discharge orders & Medications Prescriptions: New amoxicillin-pot clavulanate [Augmentin] 500-125 mg tablet 1 tab PO BID Qty: 10 0RF acetaminophen [Tylenol] 325 mg capsule 650 mg PO QID PRN (Reason: pain) Qty: 60 0RF ibuprofen 200 mg tablet 400 mg PO Q6H Qty: 60 0RF tramadol 50 mg tablet 50 mg PO Q6H PRN (Reason: pain) Qty: 10 0RF Continued albuterol sulfate 90 mcg/actuation HFA aerosol inhaler 2 puff INHALATION PRN PRN (Reason: sob) medroxyprogesterone 10 mg tablet 10 mg PO DAILY Discontinued acetaminophen [Tylenol] 325 mg Tablet 650 mg PO Q6H PRN (Reason: Pain, Moderate) ibuprofen 200 mg Tablet 400 mg PO Q6H PRN (Reason: Pain, Moderate) Follow up/Referrals: Raymond Alvarez PA-C [Primary Care Provider] - Diet/Activity/Treatments Diet: Carb-consistent/Diabetic Skin/Wound/Dressing Care Report to your healthcare provider any signs of infection, such as:: chills, fever, night sweats and increased pain Visit Report/Discharge Packet Stand Alone Forms: Patient Portal/API, Stroke Signs & Symptoms Discharge Data Primary Care Provider: Raymond Alvarez
--- NOTE | 2023-10-04 06:43 | PC.NURSE ---
Late Entry: Piperacillin infusion initiated 09/24 at 2126 complete at 0027.
== END 2023-09-26 20:19 | disposition home or self-care (01) ==
LOC: ED 13:41 → AC 14:08
PROVIDERS: Student in an Organized Health Care Education/Training Program; Surgery; Admitting Provider Surgery; Emergency Provider Emergency Medicine; PCP Physician Assistant Medical; Referring Provider Emergency Medicine; Visit Provider Surgery
DX: K35.80 Unspecified acute appendicitis (principal); Z68.43 Body mass index [BMI] 50.0-59.9, adult; E66.01 Morbid (severe) obesity due to excess calories; E11.9 Type 2 diabetes mellitus without complications; F15.10 Other stimulant abuse, uncomplicated; F17.210 Nicotine dependence, cigarettes, uncomplicated
CPT/HCPCS: 36415; 74177; 80048; 80053; 80305; 81003; 81015; 81025; 82962; 83036; 83690; 85025; 85027; 87086; 96361; 96365; 96366; 96372; 96375; 99222; 99238; 99284; G0378; J1100; J1815; J2060; J2270; J2405; J2543; J2704; J3010

== ENCOUNTER 2023-09-27 14:53 | Emergency (ER) | payer OTHER, MEDICAID, SELFPAY ==
[2023-09-25 15:48] VITALS: BMI 51.5
[2023-09-27] VITALS (7 sets, daily range): BP systolic 120–147; BP diastolic 58–86; PULSE 95–101; RESP 16; TEMP 36.8; O2SAT 96–98; BMI 51.5
--- NOTE | 2023-09-27 16:13 | ED.GENADULT ---
HPI - General Adult General Chief complaint: Abdominal Pain Stated complaint: and pain/states has appendicitis Time Seen by Provider: 09/27/23 15:58 Source: patient Mode of arrival: Family Vehicle History of Present Illness HPI narrative: 47-year-old female who was seen in the emergency department a couple days ago and diagnosed with acute appendicitis. Was admitted to the hospital but subsequently discharged home on oral antibiotics after the decision was made not to have surgery. She was sent home yesterday evening. 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 She did not pick the antibiotics up today. She returns to the emergency department for continued symptoms Related Data Home Medications Medication Instructions Recorded Confirmed albuterol sulfate 90 mcg/actuation 2 puff inhalation PRN PRN sob 01/25/20 09/25/23 aerosol inhaler medroxyprogesterone 10 mg tablet 10 mg PO DAILY 09/25/23 09/25/23 Previous Rx's Medication Instructions Recorded acetaminophen 325 mg capsule 650 mg (2 x 325 mg) PO QID PRN 09/26/23 (Tylenol) pain #60 caps amoxicillin 500 mg-potassium 1 tab PO BID #10 tabs 09/26/23 clavulanate 125 mg tablet (Augmentin) ibuprofen 200 mg tablet 400 mg (2 x 200 mg) PO Q6H #60 tabs 09/26/23 tramadol 50 mg tablet 50 mg PO Q6H PRN pain #10 tabs 09/26/23 Allergies Allergy/AdvReac Type Severity Reaction Status Date / Time No Known Drug Allergies Allergy Verified 09/25/23 14:39 Review of Systems Review of Systems ROS Unobtainable: All systems reviewed & are unremarkable except as noted in HPI and below Patient History Surgical History Hx of section (~2008) Hx of tubal ligation (~2008) History of spinal surgery Social History household members: family Smoking Status: Current every day smoker alcohol intake: current Smoking Status: Current every day smoker alcohol intake frequency: holidays/special occasions only Substance Use Type: marijuana and methamphetamine Exam Initial Vital Signs Initial Vital Signs: Vital Signs Temperature 98.2 F 09/27/23 15:28 Pulse Rate 98 H 09/27/23 15:28 Respiratory Rate 16 09/27/23 15:28 Blood Pressure 140/82 09/27/23 15:28 Pulse Oximetry 98 09/27/23 15:28 Oxygen Delivery Method Room Air 09/27/23 15:28 HENAL Head: normal to inspection and normocephalic Resp Effort & Inspection: normal respiratory effort Auscultation: clear to auscultation bilaterally Cardio Rate: regular rate GI Inspection: normal to inspection and non-distended Palpation: tender Course Orders Ordered: ED Orders 09/27/23 16:10 Complete Blood Count AUTO DIFF Stat Comprehensive Metabolic Panel Stat Lipase Stat Test Serum,Qual Stat Vital Signs Vital signs: Vital Signs - 8 hr 09/27/23 15:28 09/27/23 16:10 09/27/23 16:10 Temperature 98.2 F Pulse Rate 98 H 95 H Respiratory Rate 16 Blood Pressure 140/82 136/72 Pulse Oximetry 98 96 Oxygen Delivery Method Room Air 09/27/23 16:30 09/27/23 16:30 09/27/23 17:00 Temperature Pulse Rate 98 H 97 H Respiratory Rate Blood Pressure 123/58 L Pulse Oximetry 97 97 Oxygen Delivery Method 09/27/23 17:01 09/27/23 17:01 09/27/23 17:30 Temperature Pulse Rate 97 H 95 H Respiratory Rate Blood Pressure 120/86 Pulse Oximetry 98 98 Oxygen Delivery Method 09/27/23 17:38 09/27/23 17:38 Temperature Pulse Rate 101 H Respiratory Rate Blood Pressure 147/81 H Pulse Oximetry 97 Oxygen Delivery Method Medical Decision Making Lab Data Lab results reviewed: Yes I reviewed the patient's lab results. 09/27/23 16:10 09/27/23 16:10 Labs: Lab Results 09/27/23 Range/Units 16:10 WBC 9.2 (4.5-11.0) X10^3/uL RBC 4.42 (4.0-5.2) X10^6/uL Hgb 12.9 (12.0-16.0) g/dL Hct 38.1 (36-46) % MCV 86.3 (80-100) fL MCH 29.2 (26-34) PG MCHC 33.8 (30-36) % RDW 14.1 (11.6-14.8) % Plt Count 181 (150-400) X10^3/uL Neut % (Auto) 71.5 (50-75) % Lymph % (Auto) 21.2 L (25-40) % [place] % (Auto) 5.0 (3-14) % Eos % (Auto) 1.4 L (2-4) % Baso % (Auto) 0.9 (0-2) % Neut # (Auto) 6600 (7193-2038) /uL Lymph # (Auto) 2000 (6831-5991) /uL [place] # (Auto) 500 (0-900) /uL Eos # (Auto) 100 (0-450) /uL Baso # (Auto) 100 (0-100) /uL Sodium 135 L (137-145) mmol/L Potassium 3.7 (3.4-5.1) mmol/L Chloride 104 (98-107) mmol/L Carbon Dioxide 28 (22-32) mmol/L BUN 6 L (7-17) mg/dL Creatinine 0.46 L (0.52-1.04) mg/dL Estimated GFR > 60 (>60) mL/min BUN/Creatinine Ratio 13.0 (6-22) Glucose 241 H (70-100) mg/dL Calcium 8.8 (8.4-10.2) mg/dL Total Bilirubin 0.5 (0.2-1.3) mg/dL AST 28 (14-36) IU/L ALT 23 (<35) IU/L Alkaline Phosphatase 133 H (38-126) U/L Total Protein 7.3 (6.3-8.2) g/dL Albumin 3.6 (3.5-5.0) g/dL Globulin 3.7 (1.7-4.1) g/dL Albumin/Globulin Ratio 1.0 (1.0-2.8) Lipase 37 D (23-300) U/L Serum , Qual Negative (Negative) MDM Narrative Medical decision making narrative: No leukocytosis. Does have right lower quadrant abdominal pain similar to her last visit. Discussed the case with Dr. You on-call for General surgery who did not that the patient should start taking the antibiotics that were prescribed yesterday. Will not admit to the hospital for an appendectomy based on the discussions from yesterday and her current labs today. I did discuss this with the patient. Will discharge patient with return precautions. She expressed understanding and agreement. Discharge Plan Departure Patient Disposition: Home Clinical Impression: Abdominal pain Instructions: DI for Abdominal Pain-Adult Activity Restrictions/Additional Instructions: Follow the previous discharge instructions from the general surgeon. customer support consultant the prescription for antibiotics that was sent to the pharmacy of your choice. Return to the emergency department for new symptoms. Prescriptions: No Action albuterol sulfate 90 mcg/actuation HFA aerosol inhaler 2 puff INHALATION PRN PRN (Reason: sob) medroxyprogesterone 10 mg tablet 10 mg PO DAILY amoxicillin-pot clavulanate [Augmentin] 500-125 mg tablet 1 tab PO BID Qty: 10 0RF acetaminophen [Tylenol] 325 mg capsule 650 mg PO QID PRN (Reason: pain) Qty: 60 0RF ibuprofen 200 mg tablet 400 mg PO Q6H Qty: 60 0RF tramadol 50 mg tablet 50 mg PO Q6H PRN (Reason: pain) Qty: 10 0RF Referrals: Raymond Alvarez PA-C [Primary Care Provider] - Stand Alone Forms: Patient Portal/API
[2023-09-27 16:29] LABS: Add Manual Diff / Slide Review NO; Basophils Absolute Auto 100 /uL (0-100); Basophils Percent Auto 0.9 % (0-2); Eosinophils Absolute Auto 100 /uL (0-450); Eosinophils Percent Auto 1.4 % (2-4); Hematocrit 38.1 % (36-46); Hemoglobin 12.9 g/dL (12.0-16.0); Lymphocytes Absolute Auto 2000 /uL (1100-4500); Lymphocytes Percent Auto 21.2 % (25-40); Mean Corpuscular HGB Conc 33.8 % (30-36); Mean Corpuscular Hemoglobin 29.2 PG (26-34); Mean Corpuscular Volume 86.3 fL (80-100); Monocytes Absolute Auto 500 /uL (0-900); Neutrophils Absolute Auto 6600 /uL (1500-7000); Neutrophils Percent Auto 71.5 % (50-75); Platelet Count 181 X10^3/uL (150-400); Red Blood Cell Count 4.42 X10^6/uL (4.0-5.2); Red Cell Distribution Width 14.1 % (11.6-14.8); White Blood Cell Count 9.2 X10^3/uL (4.5-11.0)
[2023-09-27 16:31] LABS: Alanine Aminotransferase 23 IU/L (<35); Albumin 3.6 g/dL (3.5-5.0); Alkaline Phosphatase 133 U/L (38-126); Aspartate Aminotransferase 28 IU/L (14-36); Bilirubin Total 0.5 mg/dL (0.2-1.3); Blood Urea Nitrogen 6 mg/dL (7-17); Calcium 8.8 mg/dL (8.4-10.2); Carbon Dioxide 28 mmol/L (22-32); Chloride 104 mmol/L (98-107); Estimated Glomerular Filt Rate > 60 mL/min (>60); Globulin 3.7 g/dL (1.7-4.1); Glucose 241 mg/dL (70-100); HEMOLYSIS 19 (0-50); Lipase 37 U/L (23-300); Potassium 3.7 mmol/L (3.4-5.1); Pregnancy Test Serum,Qual Negative (Negative); Sodium 135 mmol/L (137-145); Total Protein 7.3 g/dL (6.3-8.2)
== END 2023-09-27 17:40 | disposition home or self-care (01) ==
PROVIDERS: Emergency Provider Emergency Medicine; PCP Internal Medicine
DX: R10.31 Right lower quadrant pain (principal)
CPT/HCPCS: 36415; 80053; 83690; 84703; 85025; 99282; 99283